=== PATIENT | male | born 1995 | race Caucasian/White ===

== ENCOUNTER 2017-04-03 21:33 | Emergency (ER) | payer OTHER ==
[~2017-04-03] VITALS: Ht 182.9 cm; Wt 93.0 kg
[2017-04-03 21:36] VITALS: BP 131/71; PULSE 64; RESP 16; TEMP 98.1; O2SAT 98
[2017-04-03] MEDS ORDERED: HYDR-3533 PO (22:29)
[2017-04-03] MEDS ORDERED: PROPARACAINE HCL 0.5% OPHT SOLN 15 ML BTL EACH EYE ONE (22:30)
[2017-04-03] MEDS ORDERED: TETANUS/DIPHTHERIA TOXOID ADULT 0.5 ML VIAL IM ONE (22:30)
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
[2017-04-03] MEDS ORDERED: ERYTOIN10 EACH EYE (22:37)
== END 2017-04-03 23:10 | disposition home or self-care (01) ==
LOC: PHED 21:33
DX: T26.12XA Burn of cornea and conjunctival sac, left eye, initial encounter (principal); T26.11XA Burn of cornea and conjunctival sac, right eye, initial encounter; X08.8XXA Exposure to other specified smoke, fire and flames, initial encounter; Y93.89 Activity, other specified
CPT/HCPCS: 99283